=== PATIENT | male | born 1970 | race Two or more races ===

== ENCOUNTER 2021-03-21 08:52 | Emergency (ER) | payer MEDICAID, OTHER ==
[~2021-03-21] VITALS: Ht 180.3 cm; Wt 108.9 kg
[2021-03-21 09:40] VITALS: BP 134/93
== END 2021-03-21 09:50 | disposition home or self-care (01) ==
LOC: ER 08:52
DX: U07.1 COVID-19 (principal); J20.8 Acute bronchitis due to other specified organisms; Z90.49 Acquired absence of other specified parts of digestive tract
CPT/HCPCS: 71045